=== PATIENT | male | born 1985 | race Caucasian/White ===

== ENCOUNTER 2017-01-25 14:58 | Inpatient (IN) | payer SELFPAY ==
[2017-01-25] MEDS ORDERED: ALBUTEROL SULFATE 0.083% NEB 2.5 MG/3 ML AMPUL NEB ONE ×2 (15:11→22:43)
--- NOTE | 2017-01-25 15:11 | ER Document Report ---
ED Medical Screen (RME) - General Stated Complaint: SHORTNESS OF BREATH Mode of Arrival: Medic Information source: Emergency Med Personnel Notes: Pt presents with nonproductive cough for 2 days. RA sats with EMS 96-100% before and after neb tx. Reports chest wall pain with cough. HX of bronchitits. Denies f/v//d. denies pmh asthma. Reports vomited all night, diminished breath sounds. Sats 92% on room air upon arrival. I have greeted and performed a rapid initial assessment of this patient. A comprehensive ED assessment and evaluation of the patient, analysis of test results and completion of the medical decision making process will be conducted by additional ED providers. - HPI Onset: Other - couple days ago Severity: Severe Pain Level: 3 - pain with cough Associated Symptoms: Cough (nonproductive), Vomiting Past Medical History - General Information source: Patient - Social History Cigarette use (# per day): Yes Frequency of alcohol use: None Drug Abuse: None Occupation: [employer] Lives with: Family
[2017-01-25 16:47] LABS: HEMATOCRIT 46.8 % (37.9-51.0); HEMOGLOBIN 16.5 g/dL (13.5-17.0); HGB HCT DIFFERENCE 2.7; MEAN CORPUSCULAR HEMOGLOBIN 29.4 pg (27.0-33.4); MEAN CORPUSCULAR HGB CONC 35.2 g/dL (32.0-36.0); MEAN CORPUSCULAR VOLUME 84 fl (80-97); RED CELL DISTRIBUTION WIDTH 13.6 % (11.5-14.0); WHITE BLOOD COUNT 3.7 10^3/uL (4.0-10.5)
[2017-01-25 17:07] LABS: BAND NEUTROPHILS % (MANUAL) 7 % (3-5); BASOPHILS % (MANUAL) 1 % (0-2); EOSINOPHILS % (MANUAL) 0 % (0-6); LYMPHOCYTES % (MANUAL) 5 % (13-45); TOTAL CELLS COUNTED 100
[2017-01-25 17:08] LABS: ALANINE AMINOTRANSFERASE 75 U/L (21-72); ALBUMIN 4.7 g/dL (3.5-5.0); ALKALINE PHOSPHATASE 62 U/L (38-126); ANION GAP 15 (5-19); ASPARTATE AMINO TRANSFERASE 39 U/L (17-59); BILIRUBIN,DIRECT 0.5 mg/dL (0.0-0.4); BILIRUBIN,TOTAL 1.4 mg/dL (0.2-1.3); BLOOD UREA NITROGEN 16 mg/dL (7-20); CALCIUM 9.7 mg/dL (8.4-10.2); CARBON DIOXIDE 28 mmol/L (22-30); CHLORIDE 99 mmol/L (98-107); CREATININE RESULT 0.81 mg/dL (0.52-1.25); GLUCOSE 103 mg/dL (75-110); POTASSIUM 4.8 mmol/L (3.6-5.0); RBC MORPHOLOGY COMMENT NORMO-CYTIC/CHROMIC; SODIUM 142.4 mmol/L (137-145); TOTAL PROTEIN 7.6 g/dL (6.3-8.2)
[2017-01-25] MEDS ORDERED: FAMOTIDINE INJ/PF 20 MG/2 ML SDV IV ONE (19:43)
[2017-01-25] MEDS ORDERED: ONDANSETRON HCL INJ/PF 4 MG/2 ML SDV IV ONE ×2 (19:43→21:00)
--- NOTE | 2017-01-25 19:45 | ER Document Report ---
ED General - General Chief Complaint: Breathing difficulty, N/V, cough Stated Complaint: SHORTNESS OF BREATH Time seen by provider: 19:45 Mode of Arrival: Medic Information source: Patient TRAVEL OUTSIDE OF THE [place] IN LAST 30 DAYS: No - HPI Patient complains to provider of: fever, cough, nausea, vomiting, difficulty breathing Onset: Other - 2 days Onset/Duration: Worse Quality of pain: Achy Severity: Moderate Pain Level: 3 Associated symptoms: Body/muscle aches, Chills, Nonproductive cough, Fever, Nausea, Vomiting, Shortness of breath Exacerbated by: Denies Relieved by: Denies Similar symptoms previously: No Recently seen / treated by doctor: No Notes: Patient is a 31-year-old male who presents to the emergency room from urgent care for complaints of 2 days worth of cold symptoms that has now progressed to nausea and vomiting with difficulty breathing, he does report a small amount of phlegm, as well as a fever, denies any pain at the present time, denies dysuria , no hematuria, no diarrhea, no blood in his stools, patient denies any past medical history, does report a brother sick with upper respiratory symptoms recently although not quite as bad as patient, and patient is a smoker - Related Data Allergies/Adverse Reactions: codeine Adverse Reaction (Verified 01/26/17 02:34) N/V, MIGRAINE BEE STINGS Allergy (Uncoded 01/26/17 02:34) Home Medications: Current Home Medications No Home Medications 01/25/17 [History] Past Medical History - General Information source: Patient - Social History Smoking Status: Current Every Day Smoker Cigarette use (# per day): Yes Frequency of alcohol use: None Drug Abuse: None Occupation: [employer] Lives with: Family Family History: COPD Patient has suicidal ideation: No Patient has homicidal ideation: No Renal/ Medical History: Denies: Hx Peritoneal Dialysis Review of Systems - Review of Systems Constitutional: See HPI EENT: See HPI Cardiovascular: No symptoms reported Respiratory: See HPI Gastrointestinal: See HPI Genitourinary: No symptoms reported Male Genitourinary: No symptoms reported Musculoskeletal: No symptoms reported Skin: No symptoms reported Hematologic/Lymphatic: No symptoms reported Neurological/Psychological: No symptoms reported -: Yes All other systems reviewed and negative Physical Exam - Vital signs Vitals: Temp Pulse Resp BP Pulse Ox 98.3 F 105 H 22 H 125/81 92 01/25/17 15:05 01/25/17 15:05 01/25/17 15:05 01/25/17 15:05 01/25/17 15:05 Interpretation: Tachycardic, Tachypneic - General General appearance: Alert In distress: Mild - HEENT Head: Normocephalic, Atraumatic Eyes: Other - Periorbital areas are mildly erythematous and appear sunken in Conjunctiva: Normal Extraocular movements intact: Yes Eyelashes: Normal Pupils: PERRL Mucous membranes: Normal Pharynx: Normal Neck: Normal - Respiratory Respiratory status: Tachypnea Chest status: Nontender Breath sounds: Normal Chest palpation: Normal - Cardiovascular Rhythm: Regular, Tachycardia Heart sounds: Normal auscultation Murmur: No - Abdominal Inspection: Normal Distension: No distension Bowel sounds: Normal Tenderness: Tender Organomegaly: No organomegaly - Back Back: Normal, Nontender - Extremities General upper extremity: Normal inspection, Nontender, Normal color, Normal ROM , Normal temperature General lower extremity: Normal inspection, Nontender, Normal color, Normal ROM , Normal temperature, Normal weight bearing. No: Chapincito's sign - Neurological Neuro grossly intact: Yes Cognition: Normal Orientation: AAOx4 Tracy Coma Scale Eye Opening: Spontaneous Tracy Coma Scale Verbal: Oriented Tracy Coma Scale Motor: Obeys Commands Jackie Coma Scale Total: 15 Speech: Normal Motor strength normal: LUE, RUE, LLE, RLE Sensory: Normal - Psychological Associated symptoms: Normal affect, Normal mood - Skin Skin Temperature: Warm Skin Moisture: Dry Skin Color: Normal Course - Re-evaluation Re-evalutation: 01/25/17 21:07 Patient with leukopenia and thrombocytopenia, no history of this previously, he is also noted to have a bandemia and mild liver enzyme elevations, he is not currently on any medications, I am concerned about the possibility of ITP or other serious pathology, therefore additional testing has been ordered including CT scans and additional blood work 01/25/17 22:[address] Aviles - Vital Signs Vital signs: Temp Pulse Resp BP Pulse Ox 98.3 F 105 H 22 H 125/81 92 01/25/17 15:05 01/25/17 15:05 01/25/17 15:05 01/25/17 15:05 01/25/17 15:05 - Laboratory Result Diagrams: 01/25/17 16:13 01/25/17 16:13 Laboratory results interpreted by me: 01/25/17 01/25/17 01/25/17 16:13 16:13 16:13 WBC 3.7 L RBC 5.60 H Plt Count 107 L Band Neutrophils % 7 H Lymphocytes % (Manual) 5 L Abs Lymphs (Manual) 0.2 L Total Bilirubin 1.4 H Direct Bilirubin 0.5 H ALT 75 H Free T4 0.49 L Free T3 pg/mL 2.70 L - Diagnostic Test Radiology reviewed: Image reviewed, Reports reviewed Discharge - Discharge Clinical Impression: Thrombocytopenia Pneumonia Qualifiers: Pneumonia type: due to unspecified organism Laterality: right Lung location: upper lobe of lung Qualified Code(s): J18.1 - Lobar pneumonia, unspecified organism Condition: Fair Disposition: ADMITTED INPATIENT Admitting Provider: Hospitalist Unit Admitted: Telemetry
[2017-01-25] MEDS: NORMAL SALINE 1000 ML 1,000 ML IV PRN ×2 (20:16→22:29)
[2017-01-25 20:19] LABS: PARTIAL THROMBOPLASTIN TIME 31.5 SEC (23.5-35.8)
[2017-01-25 21:16] LABS: FREE T3 2.7 pg/mL (2.77-5.27)
[2017-01-25 21:29] LABS: THYROID STIMULATING HORMONE 0.6 uIU/mL (0.47-4.68)
[2017-01-25 21:39] LABS: ADD HIVPANEL? NO; HIV (1 AND 2) ANTIBODY NEGATIVE (NEGATIVE)
[2017-01-25 22:03] LABS: FOLATE 7.38 ng/mL (>2.76)
[2017-01-25] MEDS ORDERED: NORMAL SALINE 1000 ML 1,000 ML IV PRN (22:15)
[2017-01-25] MEDS ORDERED: LEVOFLOXACIN 750 MG/D5W RTU 150 ML IV ONE (22:15)
[2017-01-25] MEDS ORDERED: KETOROLAC TROMETHAMINE INJ/PF 30 MG/1 ML SDV IV ONE (22:35)
[2017-01-25 23:06] LABS: ADD ON TESTING BLD IN LAB ACKNOWLEDGE
[2017-01-25 23:18] LABS: MAGNESIUM 2.1 mg/dL (1.6-2.3)
[2017-01-26] MEDS ORDERED: NICOTINE 7 MG/24 HR PATCH.TD24 TD PRN (02:32)
[2017-01-26] MEDS ORDERED: GUAIFENESIN SYRP 200 MG/10 ML UDC PO PRN (02:33)
[2017-01-26] MEDS ORDERED: IPRATROPIUM/ALBUTEROL 0.5-2.5 MG/3 ML AMPUL NEB PRN (02:33)
[2017-01-26] MEDS ORDERED: ACETAMINOPHEN 325 MG TABLET PO PRN (02:33)
[2017-01-26] MEDS ORDERED: MAGNESIUM HYDROXIDE SUSP 30 ML UDCUP PO PRN (02:38)
--- NOTE | 2017-01-26 02:51 | PDOC H&P ---
History of Present Illness Admission Date/PCP: 01/26/17 00:19 pcp None Patient complains of: SOB History of Present Illness: JOZEF RIGGS is a 31 year old male with chronic medical problem basically consisting only of occasional mild anxiety, who presents to the emergency room for evaluation of a 2 day history of "cold" symptoms, consisting of mild shortness of breath, slightly productive cough, subjective fever and chills along with a number of episodes of nausea and nonbloody, non-coffee ground emesis. Mild chest pressure and tightness with coughing. None at present. No prior such episodes. Brother sick with similar symptoms. No diarrhea or dysuria. No flu vaccination this year. No underlying pulmonary disease, including no history of sleep apnea. Less than half a pack a day smoker. No alcohol or illicit drug use. Patient has been discussed with emergency room physician who evaluated the patient. Prior to my being called, emergency room physician did discuss with on -call hematology, Dr. Aviles, who felt patient should be admitted, with treatment of suspected infection. She will see patient in consultation.. Laboratory results are listed in [facility] and are reviewed. X-ray summary results are listed below, with full report(s) reviewed. . Social history/personal habits: Single. No children. Works for [employer]. Lives with parents. Personal habits as noted above. Allergies/adverse reactions are listed in [facility] and are reviewed. Home medications none , other than a multivitamin. REVIEW OF SYSTEMS: Constitutional: See history and present illness. Eyes: Wears glasses. ENT: No swallowing problems or complaints. No hearing problems or complaints. Pulmonary: See history and present illness. Cardiovascular: See history and present illness. Gastrointestinal: See history and present illness. Skin: No current complaints, including rashes. Hematologic: No unusual easy bruising or bleeding. Neurologic: No current complaints, including numbness or tingling. Musculoskeletal: No current complaints, including painful joints. Psychiatric: Mild occasional anxiety. Endocrine: No current complaints, including polyuria. Genitourinary: No current complaints, including dysuria. PHYSICAL EXAMINATION: 5 feet 9 inches tall. 88.6 kg. BMI 28.8 kg/m. Temperature 98.3. Blood pressure 104/72. Pulse 102 and regular. 98% saturation on room air. Respirations are 19 and unlabored. Slightly overweight otherwise well-nourished well-developed young male , appearing approximately his stated age. Initially asleep, but awakens easily. Pleasant alert and cooperative. Mildly anxious, but without agitation. No other obvious distress. Skin is warm and dry. No grossly obvious evidence of rash in areas of skin examined. No subcutaneous nodules palpated. ENT: Hearing grossly normal to normal conversation. Tongue midline on protrusion pink and slightly tacky. Eyes: No scleral icterus. Pupils equal and reactive to light at 4 mm. Sweetser conjunctivae. Neck is supple and nontender to gentle active range of motion and palpation. Midline trachea. No palpable thyroid nodule mass enlargement or tenderness. Lymphatic: No palpable cervical or clavicular nodes. Neck and lymphatic exams limited by patient body habitus. Psychiatric: Reasonable insight into acute and chronic medical issues. Oriented to time location and why here. Lungs: Auscultation reveals clear and equal breath sounds bilaterally. No use of accessory respiratory muscles. Cardiovascular: Heart regular rate and rhythm, without gallop murmur or rub. No carotid or abdominal aortic bruits. No ankle or pedal edema. Faintly palpable dorsalis pedis pulses. Abdomen: soft, , slightly distended nontender with positive bowel sounds. Unable to adequately evaluate abdomen for masses or organomegaly due to distention. Extremities: Feet are warm and dry. No calf tenderness to compression. No grossly obvious visual evidence of calf swelling. Gentle manipulation of lower extremities fails to reveal any obvious evidence of injury or instability to knees hips or ankles. Neurologic: Moves upper extremities grossly normally. Patellar reflexes absent. Absent Babinski. Light touch is intact at feet. Dorsiflexion and plantarflexion of feet 5 / 5 and symmetric. Past Medical History Cardiac Medical History: Denies: Congestive Heart Failure, DVT, Myocardial Infarction, Hyperlipidema, Hypertension, Pulmonary Embolism Pulmonary Medical History: Denies: Asthma, Chronic Obstructive Pulmonary Disease (COPD), Sleep Apnea EENT Medical History: Denies: Eyes, Ears, Throat Neurological Medical History: Denies: Hemorrhagic CVA, Ischemic CVA, Seizures Endocrine Medical History: Denies: Diabetes Mellitus Type 1, Diabetes Mellitus Type 2, Hyperthyroidism, Hypothyroidism Renal/ Medical History: Reports: None GI Medical History: Denies: Cirrhosis, Gastroesophageal Reflux Disease, Hepatitis, Peptic Ulcer Disease Musculoskeltal Medical History: Reports: None Skin Medical History: Reports: None Psychiatric Medical History: 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, Tobacco Dependency Denies: Alcohol Dependency, Depression, Substance Abuse Hematology: Reports: None Infectious Medical History: Denies: Clostridium Difficile, Hepatitis B, Hepatitis C, Methicillin- Resistant Staph Aureus Past Surgical History Past Surgical History: Reports: Other - [place] teeth extraction Social History Information Source: Patient, Emergency Med Personnel, [facility] Records Lives with: Family Smoking Status: Current Every Day Smoker Frequency of Alcohol Use: None Drugs: None - Advance Directive Resuscitation Status: Full Code Surrogate healthcare decision maker:: Parents Family History Parental Family History Reviewed: Yes Children Family History Reviewed: NA Sibling(s) Family History Reviewed.: Yes Medication/Allergy Home Medications: Albuterol Sulfate [Ventolin HFA MDI 18 GM] 1 - 2 puff IH Q4H PRN #1 mdi RX: Levothyroxine Sodium [Synthroid 0.05 mg Tablet] 0.05 mg PO DAILY@0600 #30 tablet 01/30/17 RX: Prednisone [Deltasone 20 mg Tablet] 20 mg PO BID #20 tablet 01/30/17 RX: Sulfamethoxazole/Trimethoprim [Septra-Ds 800-160 mg Tablet] 2 tab PO Q12 # 44 tablet 01/30/17 Allergies/Adverse Reactions: codeine Adverse Reaction (Verified 01/26/17 02:34) N/V, MIGRAINE BEE STINGS Allergy (Uncoded 01/26/17 02:34) Physical Exam Vital Signs: Temp Pulse Resp BP Pulse Ox 98.3 F 105 H 22 H 125/81 92 01/25/17 15:05 01/25/17 15:05 01/25/17 15:05 01/25/17 15:05 01/25/17 15:05 Results Impressions: Chest X-Ray 01/25/17 15:08 IMPRESSION: NO SIGNIFICANT RADIOGRAPHIC FINDING IN THE CHEST. Abdomen/Pelvis CT 01/25/17 19:43 IMPRESSION: NO SIGNIFICANT OR ACUTE FINDING IN THE ABDOMEN OR PELVIS ON CT SCAN WITH IV CONTRAST. Chest/Abdomen CTA 01/25/17 19:43 IMPRESSION: 1. NORMAL CTA OF THE CHEST. NO PULMONARY EMBOLI. 2. VAGUE SMALL INDISTINCT OPACITIES SCATTERED THROUGHOUT THE RIGHT UPPER LOBE. THESE ARE NONSPECIFIC. POSSIBLY DUE TO PNEUMONITIS, INFLAMMATORY PROCESS, OR EARLY INFECTION. Assessment & Plan - Diagnosis (1) Elevated LFTs Is this a current diagnosis for this admission?: YesPlan: Uncertain etiology. Follow-up hepatic panel. Hepatitis screening panel has been ordered by emergency room physician. (2) Neutropenia Qualifiers: Neutropenia type: due to infection Qualified Code(s): D70.3 - Neutropenia due to infection Is this a current diagnosis for this admission?: YesPlan: Likely due to underlying infection. Hematology consult. (3) Thrombocytopenia Is this a current diagnosis for this admission?: YesPlan: Likely due to underlying infection. Hematology consult. (4) Pneumonia involving right lung Qualifiers: Pneumonia type: due to methicillin-resistant Staphylococcus aureus (MRSA) Lung location: upper lobe of lung Qualified Code(s): J15.212 - Pneumonia due to Methicillin resistant Staphylococcus aureus Is this a current diagnosis for this admission?: YesPlan: Patient will be admitted under pneumonia protocol. Incentive spirometry twice a day. PRN DuoNeb's. Antibiotics will consist of intravenous Zithromax and Rocephin.. I strongly encouraged patient to notify staff should patient feel that breathing is worsening. Patient is a full code. I have strongly urged patient to be careful getting out of bed, to avoid a fall with injury. Knee high SCDs for DVT prophylaxis; with patient ambulatory, combined with his young age and his thrombocytopenia, will forego Lovenox or heparin at this point in time.] Impression and plans were discussed with patient, who concurs. Time spent in evaluation and management of patient: 64 minutes. (5) Tobacco dependency Is this a current diagnosis for this admission?: YesPlan: When necessary nicotine patch. - Inpatient Certification Based on my medical assessment, after consideration of the patient's comorbidities, presenting symptoms, or acuity I expect that the services needed warrant INPATIENT care.: Yes I certify that my determination is in accordance with my understanding of Medicare's requirements for reasonable and necessary INPATIENT services [42 CFR 412.3e].: Yes Medical Necessity: Need Close Monitoring Due to Risk of Patient Decompensation, Need for Nebulizer Therapy and Monitoring of Response, Need for IV Antibiotics, Risk of Complication if Not Cared For in Hospital Post Hospital Care: D/C or Transfer Summary
[2017-01-26 07:28] LABS: ABSOLUTE LYMPHOCYTES (AUTO) 0.3 10^3/uL (0.5-4.7); ABSOLUTE MONOCYTES (AUTO) 0.3 10^3/uL (0.1-1.4); ABSOLUTE NEUT (AUTO) 2.1 10^3/uL (1.7-8.2); BASOPHILS % (AUTO) 0.7 % (0-2); HEMATOCRIT 43.5 % (37.9-51.0); HEMOGLOBIN 15.2 g/dL (13.5-17.0); HGB HCT DIFFERENCE 2.1; LYMPHOCYTES % (AUTO) 11.6 % (13-45); MEAN CORPUSCULAR HEMOGLOBIN 29.4 pg (27.0-33.4); MEAN CORPUSCULAR HGB CONC 34.9 g/dL (32.0-36.0); MEAN CORPUSCULAR VOLUME 84 fl (80-97); MONOCYTES % (AUTO) 10.1 % (3-13); RED BLOOD COUNT 5.16 10^6/uL (4.35-5.55); RED CELL DISTRIBUTION WIDTH 13.8 % (11.5-14.0); SEGMENTED NEUTROPHILS % (AUTO) 77.6 % (42-78); WHITE BLOOD COUNT 2.8 10^3/uL (4.0-10.5)
[2017-01-26 07:42] LABS: ALANINE AMINOTRANSFERASE 62 U/L (21-72); ALBUMIN 3.8 g/dL (3.5-5.0); ALKALINE PHOSPHATASE 47 U/L (38-126); ASPARTATE AMINO TRANSFERASE 39 U/L (17-59); BILIRUBIN,DIRECT 0.5 mg/dL (0.0-0.4); BILIRUBIN,TOTAL 1.2 mg/dL (0.2-1.3); TOTAL PROTEIN 6.2 g/dL (6.3-8.2)
[2017-01-26] MEDS ORDERED: ONDANSETRON HCL INJ/PF 4 MG/2 ML SDV IV PRN (08:15)
[2017-01-26 09:30] LABS: URINE BARBITURATES SCREEN NEGATIVE; URINE METHADONE SCREEN NEGATIVE; URINE OPIATES LOW NEGATIVE; URINE PHENCYCLIDINE SCREEN NEGATIVE
[2017-01-26] MEDS: GUAIFENESIN 600 MG TABLET.SA PO SCH ×2 (09:45→22:54)
[2017-01-26] MEDS ORDERED: CEFTRIAXONE 1 GM/D5W RTU 50 ML IV SCH (10:00)
[2017-01-26] MEDS ORDERED: DOCUSATE SODIUM 100 MG/10 ML UDC PO SCH (10:00)
[2017-01-26] MEDS ORDERED: DOCUSATE SODIUM 100 MG CAPSULE PO SCH (10:00)
[2017-01-26] MEDS ORDERED: KETOROLAC TROMETHAMINE INJ/PF 30 MG/1 ML SDV IV ONE (11:00)
--- NOTE | 2017-01-26 11:18 | PDOC CONSULTATION ---
Consultation Consult Date: 01/26/17 Consult reason:: Leukopenia, thrombocytopenia History of Present Illness Admission Date/PCP: 01/26/17 02:33 History of Present Illness: JOZEF RIGGS is a 31 year old male without any PMH other than tobacco abuse who presented to the emergency room for evaluation of a 2 day history of "cold" symptoms, consisting of mild shortness of breath, slightly productive cough, subjective fever and chills along with a number of episodes of nausea and nonbloody, non-coffee ground emesis. Mild chest pressure and tightness with coughing. No diarrhea or dysuria. No flu vaccination this year. Brother sick with similar symptoms. Seen in ER with negative CTA per PE protocol but questionable PNA and noted leukopenia with left shift and bandemia, platelets of 100,000 but no petechia, bruising or bleeding.l Past Medical History Cardiac Medical History: Denies: Congestive Heart Failure, DVT, Myocardial Infarction, Hyperlipidema, Hypertension, Pulmonary Embolism Pulmonary Medical History: Denies: Asthma, Chronic Obstructive Pulmonary Disease (COPD), Sleep Apnea EENT Medical History: Denies: Eyes, Ears, Throat Neurological Medical History: Denies: Hemorrhagic CVA, Ischemic CVA, Seizures Endocrine Medical History: Denies: Diabetes Mellitus Type 1, Diabetes Mellitus Type 2, Hyperthyroidism, Hypothyroidism Renal/ Medical History: Reports: None GI Medical History: Denies: Cirrhosis, Gastroesophageal Reflux Disease, Hepatitis, Peptic Ulcer Disease Musculoskeltal Medical History: Reports: None Skin Medical History: Reports: None Psychiatric Medical History: 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, Tobacco Dependency Denies: Alcohol Dependency, Depression, Substance Abuse Hematology: Reports: None Infectious Medical History: Denies: Clostridium Difficile, Hepatitis B, Hepatitis C, Methicillin- Resistant Staph Aureus Past Surgical History Past Surgical History: Reports: Other - [place] teeth extraction Social History Lives with: Family Smoking Status: Current Every Day Smoker Frequency of Alcohol Use: None Drugs: None - Advance Directive Resuscitation Status: Full Code Family History Family History: COPD Parental Family History Reviewed: Yes Children Family History Reviewed: Yes Sibling(s) Family History Reviewed.: Yes Medication/Allergy Home Medications: No Home Medications 01/25/17 Allergies/Adverse Reactions: codeine Adverse Reaction (Verified 01/26/17 02:34) N/V, MIGRAINE BEE STINGS Allergy (Uncoded 01/26/17 02:34) Review of Systems Constitutional: PRESENT: as per HPI Respiratory: PRESENT: cough, dyspnea Hematologic/Lymphatic: PRESENT: as per HPI Physical Exam Vital Signs: Temp Pulse Resp BP Pulse Ox 98.5 F 105 H 24 H 127/66 H 99 01/26/17 05:28 01/25/17 15:05 01/26/17 06:01 01/26/17 06:01 01/26/17 06:01 General appearance: PRESENT: no acute distress, cooperative Head exam: PRESENT: normocephalic Eye exam: PRESENT: EOMI, PERRLA Ear exam: PRESENT: normal external ear exam Mouth exam: PRESENT: tongue midline Respiratory exam: PRESENT: rhonchi, wheezes Cardiovascular exam: PRESENT: tachycardia GI/Abdominal exam: PRESENT: normal bowel sounds, soft Neurological exam: PRESENT: alert, awake, oriented to person, oriented to place , oriented to time, oriented to situation, CN II-XII grossly intact Psychiatric exam: PRESENT: appropriate affect Results Laboratory Results: 01/26/17 07:14 01/26/17 01/26/17 07:14 07:14 WBC 2.8 L RBC 5.16 Hgb 15.2 Hct 43.5 MCV 84 MCH 29.4 MCHC 34.9 RDW 13.8 Plt Count 106 L Seg Neutrophils % 77.6 Lymphocytes % 11.6 L Monocytes % 10.1 Eosinophils % 0.0 Basophils % 0.7 Absolute Neutrophils 2.1 Absolute Lymphocytes 0.3 L Absolute Monocytes 0.3 Absolute Eosinophils 0.0 Absolute Basophils 0.0 Total Bilirubin 1.2 AST 39 ALT 62 Alkaline Phosphatase 47 Total Protein 6.2 L Albumin 3.8 Impressions: Chest X-Ray 01/25/17 15:08 IMPRESSION: NO SIGNIFICANT RADIOGRAPHIC FINDING IN THE CHEST. Abdomen/Pelvis CT 01/25/17 19:43 IMPRESSION: NO SIGNIFICANT OR ACUTE FINDING IN THE ABDOMEN OR PELVIS ON CT SCAN WITH IV CONTRAST. Chest/Abdomen CTA 01/25/17 19:43 IMPRESSION: 1. NORMAL CTA OF THE CHEST. NO PULMONARY EMBOLI. 2. VAGUE SMALL INDISTINCT OPACITIES SCATTERED THROUGHOUT THE RIGHT UPPER LOBE. THESE ARE NONSPECIFIC. POSSIBLY DUE TO PNEUMONITIS, INFLAMMATORY PROCESS, OR EARLY INFECTION. Assessment & Plan - Diagnosis (1) Elevated LFTs Is this a current diagnosis for this admission?: YesPlan: Awaiting hep serology, check anti-mitochondrial ab's (2) Pneumonia Qualifiers: Pneumonia type: due to unspecified organism Laterality: right Lung location: upper lobe of lung Qualified Code(s): J18.1 - Lobar pneumonia, unspecified organism Is this a current diagnosis for this admission?: YesPlan: Continue antibiotics, O2 and pulmonary toilet (3) Thrombocytopenia Is this a current diagnosis for this admission?: YesPlan: Check antiplatelet antibodies but may be secondary to infection (4) Pneumonia involving right lung Qualifiers: Pneumonia type: due to unspecified organism Lung location: upper lobe of lung Qualified Code(s): J18.1 - Lobar pneumonia, unspecified organism Is this a current diagnosis for this admission?: YesPlan: Treat for PNA (5) Neutropenia Qualifiers: Neutropenia type: unspecified Qualified Code(s): D70.9 - Neutropenia , unspecified Is this a current diagnosis for this admission?: YesPlan: Check flow cytometry, JEANNETTE, LDH, etc. - Time Time Spent: 50 to 70 Minutes Critical Time spent with patient: 25-34 minutes Medications reviewed and adjusted accordingly: Yes Anticipated discharge: Home - Inpatient Certification Medical Necessity: Need for IV Antibiotics
[2017-01-26] MEDS ORDERED: OXYCODONE-ACETAMINOPHEN 5-325 MG TABLET PO PRN (11:28)
[2017-01-26] MEDS ORDERED: IBUPROFEN 800 MG TABLET PO PRN (11:29)
[2017-01-26] MEDS ORDERED: CEFEPIME 2 GM/D5W RTU 50 ML IV SCH (11:30)
[2017-01-26] MEDS ORDERED: VANCOMYCIN HCL 0 MG in DEXTROSE 5%-WATER 250 ML IV NR (11:30)
[2017-01-26] MEDS: AZITHROMYCIN 500 MG in DEXTROSE 5%-WATER 250 ML IV SCH (11:32)
[2017-01-26] MEDS: LEVALBUTEROL HCL NEB 1.25 MG/3 ML AMPUL NEB PRN ×2 (12:11→12:34)
[2017-01-26] MEDS ORDERED: IPRATROPIUM/ALBUTEROL 0.5-2.5 MG/3 ML AMPUL NEB ONE (12:15)
[2017-01-26] MEDS: IPRATROPIUM/ALBUTEROL 0.5-2.5 MG/3 ML AMPUL NEB SCH ×3 (12:26→20:54)
[2017-01-26] MEDS: NORMAL SALINE 1000 ML 1,000 ML IV PRN (12:55)
[2017-01-26] MEDS ORDERED: CEFEPIME HCL 2 GM in DEXTROSE 5%-WATER 50 ML IV ONE (13:00)
[2017-01-26] MEDS ORDERED: IPRATROPIUM/ALBUTEROL 0.5-2.5 MG/3 ML AMPUL NEB SCH (14:00)
[2017-01-26] MEDS: METHYLPREDNISOLONE INJ 125 MG/2 ML SDV IV SCH ×2 (16:13→22:54)
[2017-01-26] MEDS: VANCOMYCIN HCL 1,250 MG in DEXTROSE 5%-WATER 250 ML IV SCH ×2 (16:14→22:54)
[2017-01-26] MEDS: CEFEPIME HCL 2 GM in DEXTROSE 5%-WATER 50 ML IV SCH (22:54)
[2017-01-27 04:28] LABS: ABSOLUTE LYMPHOCYTES (AUTO) 0.3 10^3/uL (0.5-4.7); ABSOLUTE MONOCYTES (AUTO) 0.1 10^3/uL (0.1-1.4); ABSOLUTE NEUT (AUTO) 1.6 10^3/uL (1.7-8.2); BASOPHILS % (AUTO) 0.1 % (0-2); HEMATOCRIT 43.3 % (37.9-51.0); HEMOGLOBIN 15.3 g/dL (13.5-17.0); HGB HCT DIFFERENCE 2.6; LYMPHOCYTES % (AUTO) 14.9 % (13-45); MEAN CORPUSCULAR HEMOGLOBIN 29.5 pg (27.0-33.4); MEAN CORPUSCULAR HGB CONC 35.2 g/dL (32.0-36.0); MEAN CORPUSCULAR VOLUME 84 fl (80-97); MONOCYTES % (AUTO) 5.5 % (3-13); RED BLOOD COUNT 5.17 10^6/uL (4.35-5.55); RED CELL DISTRIBUTION WIDTH 14.3 % (11.5-14.0); SEGMENTED NEUTROPHILS % (AUTO) 79.5 % (42-78); WHITE BLOOD COUNT 2.1 10^3/uL (4.0-10.5)
[2017-01-27 04:45] LABS: ALANINE AMINOTRANSFERASE 53 U/L (21-72); ALKALINE PHOSPHATASE 50 U/L (38-126); ANION GAP 14 (5-19); ASPARTATE AMINO TRANSFERASE 37 U/L (17-59); BILIRUBIN,DIRECT 0.4 mg/dL (0.0-0.4); BILIRUBIN,TOTAL 0.7 mg/dL (0.2-1.3); BLOOD UREA NITROGEN 12 mg/dL (7-20); CALCIUM 9.1 mg/dL (8.4-10.2); CARBON DIOXIDE 24 mmol/L (22-30); CHLORIDE 107 mmol/L (98-107); CREATININE RESULT 0.69 mg/dL (0.52-1.25); GLUCOSE 127 mg/dL (75-110); POTASSIUM 4.2 mmol/L (3.6-5.0); SODIUM 144.7 mmol/L (137-145); TOTAL PROTEIN 6.4 g/dL (6.3-8.2)
[2017-01-27] MEDS ORDERED: LEVOTHYROXINE SODIUM 0.05 MG TABLET PO SCH (06:00)
[2017-01-27] MEDS: METHYLPREDNISOLONE INJ 125 MG/2 ML SDV IV SCH ×3 (06:17→22:49)
[2017-01-27] MEDS: LEVOTHYROXINE SODIUM 0.05 MG TABLET PO SCH (06:17)
[2017-01-27] MEDS: VANCOMYCIN HCL 1,250 MG in DEXTROSE 5%-WATER 250 ML IV SCH ×2 (06:17→15:21)
[2017-01-27] MEDS: IPRATROPIUM/ALBUTEROL 0.5-2.5 MG/3 ML AMPUL NEB SCH ×4 (08:12→22:22)
--- NOTE | 2017-01-27 08:55 | PDOC PROGRESS REPORT ---
Subjective Progress Note for:: 01/27/17 Subjective:: Reports breathing a little easier but some forced expirations noted when he was asleep upon entering the room. Physical Exam Vital Signs: Temp Pulse Resp BP Pulse Ox 97.5 F 70 18 104/57 L 95 01/27/17 07:45 01/27/17 08:25 01/27/17 08:12 01/27/17 07:45 01/27/17 08:12 Intake & Output 01/26/17 01/27/17 01/28/17 06:59 06:59 06:59 Intake Total 4350 Output Total 900 Balance 3450 Weight 77.6 kg General appearance: PRESENT: no acute distress Head exam: PRESENT: normocephalic Eye exam: PRESENT: EOMI, PERRLA Ear exam: PRESENT: normal external ear exam Mouth exam: PRESENT: moist Respiratory exam: PRESENT: prolonged expiratory phas, wheezes Cardiovascular exam: PRESENT: RRR GI/Abdominal exam: PRESENT: normal bowel sounds, soft Psychiatric exam: PRESENT: appropriate affect Results Laboratory Results: 01/27/17 04:03 01/27/17 04:03 01/27/17 01/27/17 04:03 04:03 WBC 2.1 L RBC 5.17 Hgb 15.3 Hct 43.3 MCV 84 MCH 29.5 MCHC 35.2 RDW 14.3 H Plt Count 106 L Seg Neutrophils % 79.5 H Lymphocytes % 14.9 Monocytes % 5.5 Eosinophils % 0.0 Basophils % 0.1 Absolute Neutrophils 1.6 L Absolute Lymphocytes 0.3 L Absolute Monocytes 0.1 Absolute Eosinophils 0.0 Absolute Basophils 0.0 Sodium 144.7 Potassium 4.2 Chloride 107 Carbon Dioxide 24 Anion Gap 14 BUN 12 Creatinine 0.69 Est GFR ( Amer) > 60 Est GFR (Non-Af Amer) > 60 Glucose 127 H Calcium 9.1 Total Bilirubin 0.7 AST 37 ALT 53 Alkaline Phosphatase 50 Total Protein 6.4 Albumin 4.0 Impressions: Chest X-Ray 01/25/17 15:08 IMPRESSION: NO SIGNIFICANT RADIOGRAPHIC FINDING IN THE CHEST. Abdomen/Pelvis CT 01/25/17 19:43 IMPRESSION: NO SIGNIFICANT OR ACUTE FINDING IN THE ABDOMEN OR PELVIS ON CT SCAN WITH IV CONTRAST. Chest/Abdomen CTA 01/25/17 19:43 IMPRESSION: 1. NORMAL CTA OF THE CHEST. NO PULMONARY EMBOLI. 2. VAGUE SMALL INDISTINCT OPACITIES SCATTERED THROUGHOUT THE RIGHT UPPER LOBE. THESE ARE NONSPECIFIC. POSSIBLY DUE TO PNEUMONITIS, INFLAMMATORY PROCESS, OR EARLY INFECTION. Assessment & Plan - Diagnosis (1) Elevated LFTs Is this a current diagnosis for this admission?: YesPlan: Improved (2) Pneumonia Qualifiers: Pneumonia type: due to unspecified organism Laterality: right Lung location: upper lobe of lung Qualified Code(s): J18.1 - Lobar pneumonia, unspecified organism Is this a current diagnosis for this admission?: YesPlan: Continue BSA (3) Thrombocytopenia Is this a current diagnosis for this admission?: YesPlan: Stable (4) Pneumonia involving right lung Qualifiers: Pneumonia type: due to unspecified organism Lung location: upper lobe of lung Qualified Code(s): J18.1 - Lobar pneumonia, unspecified organism Is this a current diagnosis for this admission?: Yes (5) Neutropenia Qualifiers: Neutropenia type: unspecified Qualified Code(s): D70.9 - Neutropenia , unspecified Is this a current diagnosis for this admission?: YesPlan: Awaiting labs but B12 low so will begin replacement and add Solumedrol for wheezing. Also can add growth factors if Flow cytometry is negative. - Time Time Spent with patient: 25-34 minutes Critical Time spent with patient: 15-24 minutes
[2017-01-27] MEDS: CEFEPIME HCL 2 GM in DEXTROSE 5%-WATER 50 ML IV SCH ×2 (09:04→22:49)
[2017-01-27] MEDS: GUAIFENESIN 600 MG TABLET.SA PO SCH ×2 (09:04→22:49)
[2017-01-27] MEDS: AZITHROMYCIN 500 MG in DEXTROSE 5%-WATER 250 ML IV SCH (10:05)
[2017-01-27] MEDS ORDERED: METHYLPREDNISOLONE INJ 125 MG/2 ML SDV IV ONE (13:00)
[2017-01-27] MEDS: NORMAL SALINE 1000 ML 1,000 ML IV PRN (15:23)
[2017-01-27] MEDS ORDERED: NORMAL SALINE 1000 ML 1,000 ML IV PRN (18:19)
--- NOTE | 2017-01-27 18:25 | PDOC PROGRESS REPORT ---
Subjective Progress Note for:: 01/27/17 Subjective:: Patient reports that he's breathing better today. He reports he is overall feeling better today. Patient denies chest pain, abdominal pain, nausea, vomiting, fevers, chills, diarrhea, constipation, headache, new onset weakness. Physical Exam Vital Signs: Temp Pulse Resp BP Pulse Ox 97.5 F 85 17 128/74 H 94 01/27/17 04:08 01/27/17 04:08 01/27/17 04:08 01/27/17 04:08 01/27/17 04:08 Intake & Output 01/26/17 01/27/17 01/28/17 06:59 06:59 06:59 Intake Total 4350 Output Total 900 Balance 3450 Weight 77.6 kg Exam: General: Awake alert and oriented x3, mild respiratory distress, toxic appearing HEENT: AT/NC, PERRL, EOMI, oropharynx is moist, pink, no scleral icterus, no conjunctival injection Neck: No JVD, trachea midline Chest: Egophony left upper lobe, otherwise clear CV: Regular rate and rhythm, normal S1 and S2, no murmur, rub, or gallop Abdomen: Soft, nontender to palpation, nondistended, active bowel sounds; no rebound, rigidity, or guarding Extremities: No cyanosis, clubbing or edema Neuro: Cranial nerves II through XII are grossly intact without focal deficits; awake alert and oriented x3 Psych: Normal mood and affect Results Laboratory Results: 01/27/17 04:03 01/27/17 04:03 01/26/17 01/27/17 01/27/17 07:14 04:03 04:03 WBC 2.1 L RBC 5.17 Hgb 15.3 Hct 43.3 MCV 84 MCH 29.5 MCHC 35.2 RDW 14.3 H Plt Count 106 L Seg Neutrophils % 79.5 H Lymphocytes % 14.9 Monocytes % 5.5 Eosinophils % 0.0 Basophils % 0.1 Absolute Neutrophils 1.6 L Absolute Lymphocytes 0.3 L Absolute Monocytes 0.1 Absolute Eosinophils 0.0 Absolute Basophils 0.0 Sodium 144.7 Potassium 4.2 Chloride 107 Carbon Dioxide 24 Anion Gap 14 BUN 12 Creatinine 0.69 Est GFR ( Amer) > 60 Est GFR (Non-Af Amer) > 60 Glucose 127 H Calcium 9.1 Total Bilirubin 1.2 0.7 AST 39 37 ALT 62 53 Alkaline Phosphatase 47 50 Total Protein 6.2 L 6.4 Albumin 3.8 4.0 Impressions: Chest X-Ray 01/25/17 15:08 IMPRESSION: NO SIGNIFICANT RADIOGRAPHIC FINDING IN THE CHEST. Abdomen/Pelvis CT 01/25/17 19:43 IMPRESSION: NO SIGNIFICANT OR ACUTE FINDING IN THE ABDOMEN OR PELVIS ON CT SCAN WITH IV CONTRAST. Chest/Abdomen CTA 01/25/17 19:43 IMPRESSION: 1. NORMAL CTA OF THE CHEST. NO PULMONARY EMBOLI. 2. VAGUE SMALL INDISTINCT OPACITIES SCATTERED THROUGHOUT THE RIGHT UPPER LOBE. THESE ARE NONSPECIFIC. POSSIBLY DUE TO PNEUMONITIS, INFLAMMATORY PROCESS, OR EARLY INFECTION. Assessment & Plan - Diagnosis (1) Pneumonia involving right lung Qualifiers: Pneumonia type: due to unspecified organism Lung location: upper lobe of lung Qualified Code(s): J18.1 - Lobar pneumonia, unspecified organism Is this a current diagnosis for this admission?: YesPlan: Urine Legionella and pneumococcal antibody panel sent. Suspect plan community- acquired pneumonia with either staphylococcal or streptococcal pneumonia. Continue broad-spectrum empiric coverage and corticosteroids. Aggressive pulmonary toileting pending culture. Patient has gram-positive cocci in pairs and sputum, but unable to tell if this is pathogenic bacteria or normal kashif. (2) Sepsis Qualifiers: Sepsis type: sepsis due to unspecified organism Qualified Code(s): A41.9 - Sepsis, unspecified organism Is this a current diagnosis for this admission?: YesPlan: Suspicion at this time for streptococcal or staphylococcal pneumonia. Patient appears quite ill. I did discuss this case with Dr. Serrano of [facility] ID (3) Neutropenia Qualifiers: Neutropenia type: unspecified Qualified Code(s): D70.9 - Neutropenia , unspecified Is this a current diagnosis for this admission?: YesPlan: Feel this is likely secondary to patient's sepsis, but appreciate input from hematology. Please see their notes for further edification (4) Thrombocytopenia Is this a current diagnosis for this admission?: YesPlan: Begin likely secondary to sepsis. (5) Tobacco dependency Is this a current diagnosis for this admission?: YesPlan: Given nicotine replacement. (6) Elevated LFTs Is this a current diagnosis for this admission?: YesPlan: Hepatitis is currently negative - Time Time Spent with patient: 25-34 minutes Medications reviewed and adjusted accordingly: Yes
[2017-01-27] MEDS: VANCOMYCIN HCL 1,500 MG in DEXTROSE 5%-WATER 250 ML IV SCH (22:49)
[2017-01-28 04:48] LABS: ABSOLUTE LYMPHOCYTES (AUTO) 0.4 10^3/uL (0.5-4.7); ABSOLUTE MONOCYTES (AUTO) 0.3 10^3/uL (0.1-1.4); ABSOLUTE NEUT (AUTO) 4.6 10^3/uL (1.7-8.2); BASOPHILS % (AUTO) 0.2 % (0-2); HEMOGLOBIN 15.9 g/dL (13.5-17.0); HGB HCT DIFFERENCE 1.7; LYMPHOCYTES % (AUTO) 8.2 % (13-45); MEAN CORPUSCULAR HGB CONC 34.6 g/dL (32.0-36.0); MEAN CORPUSCULAR VOLUME 84 fl (80-97); MONOCYTES % (AUTO) 6.1 % (3-13); RED BLOOD COUNT 5.47 10^6/uL (4.35-5.55); RED CELL DISTRIBUTION WIDTH 13.9 % (11.5-14.0); SEGMENTED NEUTROPHILS % (AUTO) 85.5 % (42-78)
[2017-01-28 05:03] LABS: WHITE BLOOD COUNT 5.3 10^3/uL (4.0-10.5)
[2017-01-28] MEDS: METHYLPREDNISOLONE INJ 125 MG/2 ML SDV IV SCH ×3 (05:29→22:55)
[2017-01-28] MEDS: VANCOMYCIN HCL 1,500 MG in DEXTROSE 5%-WATER 250 ML IV SCH ×3 (05:29→23:37)
[2017-01-28] MEDS: LEVOTHYROXINE SODIUM 0.05 MG TABLET PO SCH (05:29)
[2017-01-28] MEDS: IPRATROPIUM/ALBUTEROL 0.5-2.5 MG/3 ML AMPUL NEB SCH ×4 (07:51→20:29)
[2017-01-28] MEDS: AZITHROMYCIN 250 MG TABLET PO SCH (09:32)
[2017-01-28] MEDS: GUAIFENESIN 600 MG TABLET.SA PO SCH ×2 (09:32→22:54)
[2017-01-28] MEDS: CEFEPIME HCL 2 GM in DEXTROSE 5%-WATER 50 ML IV SCH ×2 (09:32→22:55)
[2017-01-28] MEDS: CYANOCOBALAMIN (VITAMIN B-12) INJ 1000 MCG/1 ML VIAL SUBCUT SCH (09:47)
[2017-01-28] MEDS ORDERED: BENZONATATE 100 MG CAPSULE PO PRN (10:20)
--- NOTE | 2017-01-28 13:01 | PDOC PROGRESS REPORT ---
Subjective Progress Note for:: 01/28/17 Subjective:: He is weak but overall breathing better. Physical Exam Vital Signs: Temp Pulse Resp BP Pulse Ox 97.8 F 83 16 110/54 L 94 01/28/17 11:49 01/28/17 12:09 01/28/17 12:09 01/28/17 11:49 01/28/17 12:09 Intake & Output 01/27/17 01/28/17 01/29/17 06:59 06:59 06:59 Intake Total 4350 4319 Output Total 900 Balance 3450 4319 Weight 77.6 kg General appearance: PRESENT: no acute distress Head exam: PRESENT: normocephalic Eye exam: PRESENT: EOMI, PERRLA Respiratory exam: PRESENT: clear to auscultation shawn, unlabored Cardiovascular exam: PRESENT: RRR GI/Abdominal exam: PRESENT: normal bowel sounds, soft Neurological exam: PRESENT: alert, awake, oriented to person, oriented to place , oriented to time, CN II-XII grossly intact Psychiatric exam: PRESENT: flat affect Results Laboratory Results: 01/28/17 04:15 01/27/17 04:03 01/28/17 04:15 WBC 5.3 D RBC 5.47 Hgb 15.9 Hct 46.0 MCV 84 MCH 29.0 MCHC 34.6 RDW 13.9 Plt Count 128 L Seg Neutrophils % 85.5 H Lymphocytes % 8.2 L Monocytes % 6.1 Eosinophils % 0.0 Basophils % 0.2 Absolute Neutrophils 4.6 Absolute Lymphocytes 0.4 L Absolute Monocytes 0.3 Absolute Eosinophils 0.0 Absolute Basophils 0.0 Impressions: Chest X-Ray 01/25/17 15:08 IMPRESSION: NO SIGNIFICANT RADIOGRAPHIC FINDING IN THE CHEST. Abdomen/Pelvis CT 01/25/17 19:43 IMPRESSION: NO SIGNIFICANT OR ACUTE FINDING IN THE ABDOMEN OR PELVIS ON CT SCAN WITH IV CONTRAST. Chest/Abdomen CTA 01/25/17 19:43 IMPRESSION: 1. NORMAL CTA OF THE CHEST. NO PULMONARY EMBOLI. 2. VAGUE SMALL INDISTINCT OPACITIES SCATTERED THROUGHOUT THE RIGHT UPPER LOBE. THESE ARE NONSPECIFIC. POSSIBLY DUE TO PNEUMONITIS, INFLAMMATORY PROCESS, OR EARLY INFECTION. Assessment & Plan - Diagnosis (1) Elevated LFTs Is this a current diagnosis for this admission?: Yes (2) Pneumonia Qualifiers: Pneumonia type: due to unspecified organism Laterality: right Lung location: upper lobe of lung Qualified Code(s): J18.1 - Lobar pneumonia, unspecified organism Is this a current diagnosis for this admission?: Yes (3) Thrombocytopenia Is this a current diagnosis for this admission?: YesPlan: Resolving but will continue B12 and follow up labs (4) Pneumonia involving right lung Qualifiers: Pneumonia type: due to unspecified organism Lung location: upper lobe of lung Qualified Code(s): J18.1 - Lobar pneumonia, unspecified organism Is this a current diagnosis for this admission?: YesPlan: Antibiotics per primary team. (5) Neutropenia Qualifiers: Neutropenia type: unspecified Qualified Code(s): D70.9 - Neutropenia , unspecified Is this a current diagnosis for this admission?: YesPlan: Resolving with either steroids, or on their own - Time Time Spent with patient: 25-34 minutes Critical Time spent with patient: 15-24 minutes Medications reviewed and adjusted accordingly: Yes
[2017-01-28 13:38] LABS: JO-1 ANTIBODY <0.2 AI (0.0-0.9)
[2017-01-28 16:39] LABS: CYTOPLASMIC (C-ANCA) <1:20 titer (Neg:<1:20)
--- NOTE | 2017-01-28 19:24 | PDOC PROGRESS REPORT ---
Subjective Progress Note for:: 01/28/17 Subjective:: Patient seen earlier today on morning rounds. Patient reports he's feeling significantly better. Patient denies chest pain, patient shortness of breath, abdominal pain, nausea, vomiting, fevers, chills, diarrhea, constipation, headache, new onset weakness. Physical Exam Vital Signs: Temp Pulse Resp BP Pulse Ox 97.9 F 78 16 128/76 H 98 01/28/17 04:09 01/28/17 07:00 01/28/17 04:09 01/28/17 04:09 01/28/17 06:04 Intake & Output 01/27/17 01/28/17 01/29/17 06:59 06:59 06:59 Intake Total 4350 4319 Output Total 900 Balance 3450 4319 Weight 77.6 kg Exam: General: Awake alert and oriented x3, no acute respiratory distress HEENT: AT/NC, PERRL, EOMI, oropharynx is moist, pink, no scleral icterus, no conjunctival injection Neck: No JVD, trachea midline Chest: Clear to auscultation bilaterally CV: Regular rate and rhythm, normal S1 and S2, no murmur, rub, or gallop Abdomen: Soft, nontender to palpation, nondistended, active bowel sounds; no rebound, rigidity, or guarding Extremities: No cyanosis, clubbing or edema Neuro: Cranial nerves II through XII are grossly intact without focal deficits; awake alert and oriented x3 Psych: Normal mood and affect Results Laboratory Results: 01/28/17 04:15 01/27/17 04:03 01/28/17 04:15 WBC 5.3 D RBC 5.47 Hgb 15.9 Hct 46.0 MCV 84 MCH 29.0 MCHC 34.6 RDW 13.9 Plt Count 128 L Seg Neutrophils % 85.5 H Lymphocytes % 8.2 L Monocytes % 6.1 Eosinophils % 0.0 Basophils % 0.2 Absolute Neutrophils 4.6 Absolute Lymphocytes 0.4 L Absolute Monocytes 0.3 Absolute Eosinophils 0.0 Absolute Basophils 0.0 Impressions: Chest X-Ray 01/25/17 15:08 IMPRESSION: NO SIGNIFICANT RADIOGRAPHIC FINDING IN THE CHEST. Abdomen/Pelvis CT 01/25/17 19:43 IMPRESSION: NO SIGNIFICANT OR ACUTE FINDING IN THE ABDOMEN OR PELVIS ON CT SCAN WITH IV CONTRAST. Chest/Abdomen CTA 01/25/17 19:43 IMPRESSION: 1. NORMAL CTA OF THE CHEST. NO PULMONARY EMBOLI. 2. VAGUE SMALL INDISTINCT OPACITIES SCATTERED THROUGHOUT THE RIGHT UPPER LOBE. THESE ARE NONSPECIFIC. POSSIBLY DUE TO PNEUMONITIS, INFLAMMATORY PROCESS, OR EARLY INFECTION. Assessment & Plan - Diagnosis (1) Pneumonia involving right lung Qualifiers: Pneumonia type: due to unspecified organism Lung location: upper lobe of lung Qualified Code(s): J18.1 - Lobar pneumonia, unspecified organism Is this a current diagnosis for this admission?: YesPlan: Urine Legionella and pneumococcal antibody panel sent. Suspect plan community- acquired pneumonia with either staphylococcal or streptococcal pneumonia. Continue broad-spectrum empiric coverage and corticosteroids. Aggressive pulmonary toileting pending culture. Patient has gram-positive cocci in pairs and sputum. (2) Sepsis Qualifiers: Sepsis type: sepsis due to unspecified organism Qualified Code(s): A41.9 - Sepsis, unspecified organism Is this a current diagnosis for this admission?: YesPlan: Suspicion at this time for streptococcal or staphylococcal pneumonia. I did discuss this case with Dr. Serrano of [facility] ID (3) Neutropenia Qualifiers: Neutropenia type: due to infection Qualified Code(s): D70.3 - Neutropenia due to infection Is this a current diagnosis for this admission?: YesPlan: Although studies are currently pending, I feel this is likely secondary to sepsis. (4) Thrombocytopenia Is this a current diagnosis for this admission?: Yes (5) Tobacco dependency Is this a current diagnosis for this admission?: YesPlan: Given nicotine replacement. (6) Elevated LFTs Is this a current diagnosis for this admission?: Yes - Time Time Spent with patient: 25-34 minutes Medications reviewed and adjusted accordingly: Yes
[2017-01-28 22:19] LABS: CREATININE RESULT 0.72 mg/dL (0.52-1.25)
[2017-01-29] MEDS: VANCOMYCIN HCL 1,500 MG in DEXTROSE 5%-WATER 250 ML IV SCH (05:51)
[2017-01-29] MEDS: METHYLPREDNISOLONE INJ 125 MG/2 ML SDV IV SCH (05:51)
[2017-01-29] MEDS: LEVOTHYROXINE SODIUM 0.05 MG TABLET PO SCH (05:51)
[2017-01-29] MEDS: IPRATROPIUM/ALBUTEROL 0.5-2.5 MG/3 ML AMPUL NEB SCH ×4 (07:51→20:00)
[2017-01-29 08:41] LABS: IMMUNOGLOBULIN A 86 mg/dL (90-386); IMMUNOGLOBULIN G 747 mg/dL (700-1600); IMMUNOGLOBULIN M 60 mg/dL (20-172)
[2017-01-29 08:52] LABS: ABSOLUTE LYMPHOCYTES (AUTO) 0.6 10^3/uL (0.5-4.7); ABSOLUTE MONOCYTES (AUTO) 0.3 10^3/uL (0.1-1.4); ABSOLUTE NEUT (AUTO) 3.9 10^3/uL (1.7-8.2); BASOPHILS % (AUTO) 0.1 % (0-2); EOSINOPHILS % (AUTO) 0.1 % (0-6); HEMATOCRIT 43.1 % (37.9-51.0); HEMOGLOBIN 15.2 g/dL (13.5-17.0); HGB HCT DIFFERENCE 2.5; LYMPHOCYTES % (AUTO) 11.8 % (13-45); MEAN CORPUSCULAR HEMOGLOBIN 29.4 pg (27.0-33.4); MEAN CORPUSCULAR HGB CONC 35.2 g/dL (32.0-36.0); MEAN CORPUSCULAR VOLUME 84 fl (80-97); MONOCYTES % (AUTO) 5.5 % (3-13); RED BLOOD COUNT 5.17 10^6/uL (4.35-5.55); RED CELL DISTRIBUTION WIDTH 13.8 % (11.5-14.0); SEGMENTED NEUTROPHILS % (AUTO) 82.5 % (42-78); WHITE BLOOD COUNT 4.7 10^3/uL (4.0-10.5)
[2017-01-29] MEDS: CEFEPIME HCL 2 GM in DEXTROSE 5%-WATER 50 ML IV SCH (09:09)
[2017-01-29] MEDS: AZITHROMYCIN 250 MG TABLET PO SCH (09:09)
[2017-01-29] MEDS: GUAIFENESIN 600 MG TABLET.SA PO SCH ×2 (09:10→21:38)
[2017-01-29] MEDS: CYANOCOBALAMIN (VITAMIN B-12) INJ 1000 MCG/1 ML VIAL SUBCUT SCH (09:10)
[2017-01-29 09:18] LABS: ANION GAP 14 (5-19); BLOOD UREA NITROGEN 18 mg/dL (7-20); CALCIUM 9.1 mg/dL (8.4-10.2); CARBON DIOXIDE 26 mmol/L (22-30); CHLORIDE 103 mmol/L (98-107); CREATININE RESULT 0.64 mg/dL (0.52-1.25); GLUCOSE 123 mg/dL (75-110); POTASSIUM 3.9 mmol/L (3.6-5.0); SODIUM 142.8 mmol/L (137-145)
[2017-01-29 11:28] LABS: IMMUNOGLOBULIN E 158 IU/mL (0-100)
[2017-01-29] MEDS ORDERED: SULFAMETHOXAZOLE/TRIMETHOPRIM 800-160 MG TABLET PO ONE (12:00)
[2017-01-29] MEDS ORDERED: METHYLPREDNISOLONE INJ 125 MG/2 ML SDV IV SCH (14:00)
--- NOTE | 2017-01-29 17:30 | PDOC PROGRESS REPORT ---
Subjective Progress Note for:: 01/29/17 Subjective:: Patient seen earlier today on morning rounds. Patient reports he's feeling significantly better. Patient denies chest pain, patient shortness of breath, abdominal pain, nausea, vomiting, fevers, chills, diarrhea, constipation, headache, new onset weakness. Physical Exam Vital Signs: Temp Pulse Resp BP Pulse Ox 97.5 F 84 15 99/52 L 92 01/29/17 16:11 01/29/17 16:11 01/29/17 16:11 01/29/17 16:11 01/29/17 16:11 Intake & Output 01/28/17 01/29/17 01/30/17 06:59 06:59 06:59 Intake Total 4319 2610 Balance 4319 2610 Exam: General: Awake alert and oriented x3, no acute respiratory distress HEENT: AT/NC, PERRL, EOMI, oropharynx is moist, pink, no scleral icterus, no conjunctival injection Neck: No JVD, trachea midline Chest: Clear to auscultation bilaterally CV: Regular rate and rhythm, normal S1 and S2, no murmur, rub, or gallop Abdomen: Soft, nontender to palpation, nondistended, active bowel sounds; no rebound, rigidity, or guarding Extremities: No cyanosis, clubbing or edema Neuro: Cranial nerves II through XII are grossly intact without focal deficits; awake alert and oriented x3 Psych: Normal mood and affect Results Laboratory Results: 01/29/17 08:31 01/29/17 08:31 01/28/17 01/29/17 01/29/17 21:32 08:31 08:31 WBC 4.7 RBC 5.17 Hgb 15.2 Hct 43.1 MCV 84 MCH 29.4 MCHC 35.2 RDW 13.8 Plt Count 120 L Seg Neutrophils % 82.5 H Lymphocytes % 11.8 L Monocytes % 5.5 Eosinophils % 0.1 Basophils % 0.1 Absolute Neutrophils 3.9 Absolute Lymphocytes 0.6 Absolute Monocytes 0.3 Absolute Eosinophils 0.0 Absolute Basophils 0.0 Sodium 142.8 Potassium 3.9 Chloride 103 Carbon Dioxide 26 Anion Gap 14 BUN 18 Creatinine 0.72 0.64 Est GFR ( Amer) > 60 > 60 Est GFR (Non-Af Amer) > 60 > 60 Glucose 123 H Calcium 9.1 01/26/17 11:25 Sputum Gram Stain - Final 01/26/17 11:25 Sputum Sputum Culture - Final Mrsa (Meth Resis Staph Aureus) Normal Merissa Impressions: Chest X-Ray 01/25/17 15:08 IMPRESSION: NO SIGNIFICANT RADIOGRAPHIC FINDING IN THE CHEST. Abdomen/Pelvis CT 01/25/17 19:43 IMPRESSION: NO SIGNIFICANT OR ACUTE FINDING IN THE ABDOMEN OR PELVIS ON CT SCAN WITH IV CONTRAST. Chest/Abdomen CTA 01/25/17 19:43 IMPRESSION: 1. NORMAL CTA OF THE CHEST. NO PULMONARY EMBOLI. 2. VAGUE SMALL INDISTINCT OPACITIES SCATTERED THROUGHOUT THE RIGHT UPPER LOBE. THESE ARE NONSPECIFIC. POSSIBLY DUE TO PNEUMONITIS, INFLAMMATORY PROCESS, OR EARLY INFECTION. Assessment & Plan - Diagnosis (1) Pneumonia involving right lung Qualifiers: Pneumonia type: due to methicillin-resistant Staphylococcus aureus (MRSA) Lung location: upper lobe of lung Qualified Code(s): J15.212 - Pneumonia due to Methicillin resistant Staphylococcus aureus Is this a current diagnosis for this admission?: YesPlan: Patient grew out MRSA sensitive to Bactrim. Will place patient on Bactrim 2 tabs by mouth twice a day for 14 days. Will stop other antibiotics. Transition patient's Solu-Medrol to prednisone. Continue nebulized treatments. Wean oxygen as tolerated with hopeful discharge in the next 24 hours. (2) Sepsis Qualifiers: Sepsis type: sepsis due to unspecified organism Qualified Code(s): A41.9 - Sepsis, unspecified organism Is this a current diagnosis for this admission?: Yes (3) Neutropenia Qualifiers: Neutropenia type: due to infection Qualified Code(s): D70.3 - Neutropenia due to infection Is this a current diagnosis for this admission?: Yes (4) Thrombocytopenia Is this a current diagnosis for this admission?: Yes (5) Tobacco dependency Is this a current diagnosis for this admission?: Yes (6) Elevated LFTs Is this a current diagnosis for this admission?: Yes - Time Time Spent with patient: 25-34 minutes Medications reviewed and adjusted accordingly: Yes Anticipated discharge: Home Within: within 24 hours
[2017-01-29] MEDS ORDERED: PREDNISONE 20 MG TABLET PO SCH (18:00)
[2017-01-29] MEDS ORDERED: SULFAMETHOXAZOLE/TRIMETHOPRIM 800-160 MG TABLET PO SCH (22:00)
[2017-01-30] MEDS: LEVOTHYROXINE SODIUM 0.05 MG TABLET PO SCH (05:58)
[2017-01-30 07:45] LABS: HEMATOCRIT 45.3 % (37.9-51.0); HEMOGLOBIN 15.9 g/dL (13.5-17.0); HGB HCT DIFFERENCE 2.4; MEAN CORPUSCULAR HGB CONC 35.1 g/dL (32.0-36.0); MEAN CORPUSCULAR VOLUME 83 fl (80-97); RED BLOOD COUNT 5.48 10^6/uL (4.35-5.55); RED CELL DISTRIBUTION WIDTH 13.7 % (11.5-14.0); WHITE BLOOD COUNT 5.3 10^3/uL (4.0-10.5)
[2017-01-30 08:02] LABS: BASOPHILS % (MANUAL) 0 % (0-2); EOSINOPHILS % (MANUAL) 0 % (0-6); LYMPHOCYTES % (MANUAL) 25 % (13-45); TOTAL CELLS COUNTED 100
[2017-01-30 08:03] LABS: RBC MORPHOLOGY COMMENT NORMO-CYTIC/CHROMIC
[2017-01-30] MEDS: IPRATROPIUM/ALBUTEROL 0.5-2.5 MG/3 ML AMPUL NEB SCH (08:05)
[2017-01-30 08:06] LABS: ANION GAP 17 (5-19); BLOOD UREA NITROGEN 20 mg/dL (7-20); CALCIUM 9.3 mg/dL (8.4-10.2); CARBON DIOXIDE 21 mmol/L (22-30); CHLORIDE 108 mmol/L (98-107); CREATININE RESULT 0.73 mg/dL (0.52-1.25); GLUCOSE 106 mg/dL (75-110); POTASSIUM 3.7 mmol/L (3.6-5.0); SODIUM 145.5 mmol/L (137-145)
[2017-01-30 09:57] VITALS: BP 121/69
--- NOTE | 2017-01-30 17:45 | PDOC DISCHARGE SUMMARY ---
General - Admit/Disc Date/PCP Admission Date/Primary Care Provider: 01/26/17 02:33 Discharge Date: 01/30/17 - Discharge Diagnosis (1) Pneumonia involving right lung Is this a current diagnosis for this admission?: Yes (2) Sepsis Is this a current diagnosis for this admission?: Yes (3) Neutropenia Is this a current diagnosis for this admission?: Yes (4) Thrombocytopenia Is this a current diagnosis for this admission?: Yes (5) Tobacco dependency Is this a current diagnosis for this admission?: Yes (6) Elevated LFTs Is this a current diagnosis for this admission?: Yes (7) Thyroid function study abnormality Is this a current diagnosis for this admission?: Yes - Additional Information Resuscitation Status: Full Code Discharge Diet: Regular Discharge Activity: Activity As Tolerated Home Medications: Albuterol Sulfate [Ventolin HFA MDI 18 GM] 1 - 2 puff IH Q4H PRN #1 mdi Levothyroxine Sodium [Synthroid 0.05 mg Tablet] 0.05 mg PO DAILY@0600 #30 tablet 01/30/17 Prednisone [Deltasone 20 mg Tablet] 20 mg PO BID #20 tablet 01/30/17 Sulfamethoxazole/Trimethoprim [Septra-Ds 800-160 mg Tablet] 2 tab PO Q12 #44 tablet 01/30/17 History of Present Illness History of Present Illness: Please see H&P for full history of present illness Hospital Course Hospital Course: Patient presented with an approximate 2 day onset of shortness of breath. Patient was found to be quite septic in appearance with leukopenia, hypoxia, and tachycardia. He was Admitted and treated for pneumonia. Patient was found to be leukopenic, and hematology/oncology was consulted. Despite thorough evaluation, this was felt to be secondary to sepsis. Patient does have a very mild decreased amount of IgA. Patient eventually grew out MRSA. He was transitioned to Bactrim 2 tabs by mouth twice a day. Repeat CBC revealed that he tolerated this well and patient was discharged home today in stable condition. Patient was weaned off of oxygen. The remainder of his hospital stay was unremarkable. Patient was found to have a undetectable TSH and a low free T3 and free T4. Although possibly secondary to sick euthyroid, patient was started on small amount of Synthroid with admonition to follow-up within the next 2-3 weeks with his primary care provider for repeat evaluation. Concerned for central hypothyroidism. Physical Exam Vital Signs: Temp Pulse Resp BP Pulse Ox 97.4 F 73 14 121/69 93 01/30/17 10:12 01/30/17 10:12 01/30/17 10:12 01/30/17 10:12 01/30/17 10:12 Intake & Output 01/29/17 01/30/17 01/31/17 06:59 06:59 06:59 Intake Total 2610 720 Balance 2610 720 Exam: General: Awake alert and oriented x3, no acute respiratory distress HEENT: AT/NC, PERRL, EOMI, oropharynx is moist, pink, no scleral icterus, no conjunctival injection Neck: No JVD, trachea midline Chest: Clear to auscultation bilaterally CV: Regular rate and rhythm, normal S1 and S2, no murmur, rub, or gallop Abdomen: Soft, nontender to palpation, nondistended, active bowel sounds; no rebound, rigidity, or guarding Extremities: No cyanosis, clubbing or edema Neuro: Cranial nerves II through XII are grossly intact without focal deficits; awake alert and oriented x3 Psych: Normal mood and affect Results Laboratory Results: 01/30/17 06:32 01/30/17 06:32 01/30/17 01/30/17 06:32 06:32 WBC 5.3 RBC 5.48 Hgb 15.9 Hct 45.3 MCV 83 MCH 29.0 MCHC 35.1 RDW 13.7 Plt Count 125 L Seg Neutrophils % Not Reportable Lymphocytes % Not Reportable Monocytes % Not Reportable Eosinophils % Not Reportable Basophils % Not Reportable Absolute Neutrophils Not Reportable Absolute Lymphocytes Not Reportable Absolute Monocytes Not Reportable Absolute Eosinophils Not Reportable Absolute Basophils Not Reportable Sodium 145.5 H Potassium 3.7 Chloride 108 H Carbon Dioxide 21 L Anion Gap 17 BUN 20 Creatinine 0.73 Est GFR ( Amer) > 60 Est GFR (Non-Af Amer) > 60 Glucose 106 Calcium 9.3 Impressions: Chest X-Ray 01/25/17 15:08 IMPRESSION: NO SIGNIFICANT RADIOGRAPHIC FINDING IN THE CHEST. Abdomen/Pelvis CT 01/25/17 19:43 IMPRESSION: NO SIGNIFICANT OR ACUTE FINDING IN THE ABDOMEN OR PELVIS ON CT SCAN WITH IV CONTRAST. Chest/Abdomen CTA 01/25/17 19:43 IMPRESSION: 1. NORMAL CTA OF THE CHEST. NO PULMONARY EMBOLI. 2. VAGUE SMALL INDISTINCT OPACITIES SCATTERED THROUGHOUT THE RIGHT UPPER LOBE. THESE ARE NONSPECIFIC. POSSIBLY DUE TO PNEUMONITIS, INFLAMMATORY PROCESS, OR EARLY INFECTION. Qualifiers PATEINT BEING DISCHARGED WITH ANY OF THE FOLLOWING DIAGNOSIS?: No Plan Time Spent: Less than 30 Minutes
== END 2017-01-30 10:59 | disposition home or self-care (01) | DRG 871 ==
LOC: ER 14:58 → UNDOADMIN 01-26 00:19 → EH 01-26 00:19 → 5 01-26 20:13
PROVIDERS: ADMIT Family Medicine; ATTEND Family Medicine
DX: A41.9 Sepsis, unspecified organism (principal); J15.212 Pneumonia due to Methicillin resistant Staphylococcus aureus; D70.9 Neutropenia, unspecified; D69.6 Thrombocytopenia, unspecified; R94.6 Abnormal results of thyroid function studies; F41.1 Generalized anxiety disorder; Z79.899 Other long term (current) drug therapy; F17.200 Nicotine dependence, unspecified, uncomplicated; Z88.8 Allergy status to other drugs, medicaments and biological substances; Z91.030 Bee allergy status
CPT/HCPCS: 36415; 71020; 71275; 74177; 80048; 80053; 80074; 80076; 80202; 80307; 82565; 82607; 82746; 82784; 82785; 83615; 83735; 84439; 84443; 84481; 85025; 85610; 85730; 86021; 86225; 86235; 86701; 87040; 87070; 87077; 87186; 87205; 87804; 88184; 88185; 94640; 94799; 96365; 96375; 99285; J0456; J0692; J0696; J1885; J1956; J2405; J2930; J3370; J3420; J3490; J7030; J7060; J7512; J7620; L0120; S0028